=== PATIENT | male | born 1970 | race African-American/Black ===

== ENCOUNTER 2016-09-08 19:17 | Emergency (ER) | payer OTHER, SELFPAY ==
[2016-09-08] MEDS ORDERED: Lorazepam 2 MG/ML VIAL ONE (19:36)
[2016-09-08] MEDS ORDERED: Ketorolac Tromethamine 30 MG/ML VIAL ONE (19:37)
[2016-09-08] MEDS ORDERED: Ondansetron HCl/PF 4 MG/2 ML Vial ONE (19:37)
[2016-09-08 19:42] LABS: #Eosinphils 0.1 thou/uL (0.0-0.7); Hemoglobin 13.7 g/dL (14.0-18.0); White Blood Cell (WBC) Count 7.7 thou/uL (4.8-10.8)
[2016-09-08 20:04] LABS: ALT (SGPT) 28 U/L (8-55); AST (SGOT) 23 U/L (5-34); Albumin 4.1 g/dL (3.5-5.0); Alkaline Phosphatase 108 U/L (40-150); Anion Gap 11 mmol/L (10-20); BUN (Urea Nitrogen) 20 mg/dL (8.9-20.6); Bilirubin, Total 0.3 mg/dL (0.2-1.2); Calc. Creatinine Clearance 0 mL/min (70-130); Calcium 9.5 mg/dL (7.8-10.44); Carbon Dioxide 24 mmol/L (22-29); Chloride 108 mmol/L (98-107); Estimated GFR-MDRD Greater than 90; Globulin 2.5 g/dL (2.4-3.5); Glucose 133 mg/dL (70-105); Lipase 16 U/L (8-78); Potassium 3.3 mmol/L (3.5-5.1); Protein, Total 6.6 g/dL (6.0-8.3); Sodium 140 mmol/L (136-145)
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
[2016-09-08 20:17] LABS: #Basophils 0.2 thou/uL (0.0-0.2); #Lymphocytes 2.7 thou/uL (1.20-3.40); #Monocytes 0.6 thou/uL (0.11-0.59); #Neutrophils 4.2 thou/uL (1.40-6.50); %Lymphocytes 34.8 % (21.0-51.0); %Monocytes 8.3 % (0.0-10.0); Mean Corpuscular HGB CONC 33.6 g/dL (32.0-36.0); Mean Corpuscular Hemoglobin 28.9 pg (27.0-31.0); Mean Platelet Volume 8.2 fL (7.4-10.4); Platelet Count 297 thou/uL (130-400); RBC Distribution Width 12.3 % (11.5-14.5); Red Blood Cell (RBC) Count 4.74 mill/uL (4.70-6.10)
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
[2016-09-08 21:18] LABS: Clarity Clear (Clear)
[2016-09-08 21:19] LABS: Bacteria/HPF None Seen HPF (None Seen); Bilirubin Negative (Negative); Blood, Urine Negative (Negative); Crystals/HPF None Seen HPF (Negative); Glucose, Urine (Dipstick) Negative (Negative); Hyaline Casts/LPF NONE SEEN LPF (0-3 Hyaline); Leukocyte Negative (Negative); Nitrite Negative (Negative); Other Casts/LPF None Seen LPF (0-3 Hyaline); Other Microscopic Description N; Oval Fat Bodies/HPF None Seen HPF (None Seen); Protein, Urine (Dipstick) Negative (Neg-Trace); RBC/HPF None Seen HPF (0-3); Renal Epithelial None Seen HPF (0-3); Specific Gravity, Urine 1.005 (1.002-1.036); Sperm/HPF None Seen HPF (None Seen); Squamous Epithelial 0-3 HPF (0-3); Transitional Epithelial NONE SEEN HPF (0-3); Trichomonas/HPF None Seen HPF (None Seen); Urobilinogen 0.2 mg/dL (0.2-1.0); WBC/HPF None Seen HPF (0-3); Yeast-All Forms None Seen HPF (None Seen); pH, Urine 5.5 (5.0-9.0)
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
== END 2016-09-08 22:00 | disposition home or self-care (01) ==
LOC: MADERS 19:17
DX: S83.8X2A Sprain of other specified parts of left knee, initial encounter (principal); T07 Unspecified multiple injuries; M06.9 Rheumatoid arthritis, unspecified; Z79.891 Long term (current) use of opiate analgesic; V49.9XXA Car occupant (driver) (passenger) injured in unspecified traffic accident, initial encounter
CPT/HCPCS: 36415; 70450; 72125; 80053; 81001; 83690; 85025; 96374; 96375; J1885; J2060; J2405